=== PATIENT | male | born 1975 | race Caucasian/White ===

== ENCOUNTER 2017-09-22 21:56 | Emergency (ER) | payer OTHER ==
--- NOTE | 2017-09-22 22:21 | EDM.PDOC ---
ED HPI GENERAL MEDICAL PROBLEM - General Chief Complaint: Lower Extremity Injury/Pain Stated Complaint: PAIN LT KNEE Time Seen by Provider: 09/22/17 22:20 Source of Information: Reports: Patient - History of Present Illness INITIAL COMMENTS - FREE TEXT/NARRATIVE: HISTORY AND PHYSICAL: History of present illness: [ Patient presents via EMS, it fell while playing basketball, he describes what he believes was a possible volvulus deformity of the lower extremity at the level of the knee, however , there is no deformity at this time. he had 8 out of 10 knee pain hence EMS provided 100 g of fentanyl. He has no pain at this time No fever nausea vomiting chills sweats no head injury or loss of consciousness no chest pain shortness breath dizziness or palpitation no bowel or urine symptoms ] Review of systems: As per history of present illness and below otherwise all systems reviewed and negative. Past medical history: As per history of present illness and as reviewed below otherwise noncontributory. Surgical history: As per history of present illness and as reviewed below otherwise noncontributory. Social history: No reported history of drug or alcohol abuse. Family history: As per history of present illness and as reviewed below otherwise noncontributory. Physical exam: HEENT: Atraumatic, normocephalic, pupils reactive, negative for conjunctival pallor or scleral icterus, mucous membranes moist, throat clear, neck supple, nontender, trachea midline. Lungs: Clear to auscultation, breath sounds equal bilaterally, chest nontender. Heart: S1S2, regular, negative for clicks, rubs, or JVD. Abdomen: Soft, nondistended, nontender. Negative for masses or hepatosplenomegaly. Negative for costovertebral tenderness. Pelvis: Stable nontender. Genitourinary: Deferred. Rectal: Deferred. Extremities: Atraumatic, negative for cords or calf pain. Neurovascular unremarkable. Left lower extremity hip and ankle and unaffected, knee pain, minimal swelling no bruising no ballooning of the patella very limited exam due to pain, he is tender over the lateral joint line entire limb is neurovascularly intact Neuro: Awake, alert, oriented. Cranial nerves II through XII unremarkable. Cerebellum unremarkable. Motor and sensory unremarkable throughout. Exam nonfocal. Diagnostics: [Left knee 3 views ] Therapeutics: [Fentanyl 100 g provided via EMS ] Impression: [Left knee pain] Definitive disposition and diagnosis as appropriate pending reevaluation and review of above. Left Middle Knee Pain Score (Numeric/FACES): 8 - Related Data Allergies Allergy/AdvReac Type Severity Reaction Status Date / Time No Known Allergies Allergy Verified 01/05/15 17:32 Home Meds: Home Meds Sulfamethoxazole/Trimethoprim [Bactrim Ds Tablet] 1 each PO Q12HR #14 tablet [Rx] Social & Family History - Tobacco Use Smoking Status *Q: Current Every Day Smoker Years of Tobacco use: 23 - Alcohol Use Days Per Week of Alcohol Use: 1 Number of Drinks Per Day: 2 Total Drinks Per Week: 2 - Recreational Drug Use Recreational Drug Use: No Review of Systems - Review of Systems Review Of Systems: ROS reveals no pertinent complaints other than HPI. ED EXAM, GENERAL - Physical Exam Exam: See Below Course - Vital Signs Last Recorded V/S: Last Vital Signs Temp 98.3 F 09/22/17 22:56 Pulse 77 09/22/17 22:56 Resp 18 09/22/17 22:56 BP 112/70 09/22/17 22:56 Pulse Ox 98 09/22/17 22:56 - Orders/Labs/Meds Orders: Active Orders 24 hr Category Date Time Status Knee 3V Lt [CR] Stat Exams 09/22/17 22:20 Taken Departure - Departure Time of Disposition: 23:56 Disposition: Home, Self-Care 01 Condition: Good Clinical Impression: Left knee pain - Discharge Information Referrals: PCP,None [Primary Care Provider] - Forms: ED Department Discharge Additional Instructions: Immobilizer Crutches Nonweightbearing Medication as prescribed Return if symptoms persist or worsen Follow-up with orthopedist next week Call for appointment Phone number provided below for appropriate follow-up [facility] [address], [address] [place] [address] my orthopedic The following information is given to patients seen in the emergency department who are being discharged to home. This information is to outline your options for follow-up care. We provide all patients seen in our emergency department with a follow-up referral. The need for follow-up, as well as the timing and circumstances, are variable depending upon the specifics of your emergency department visit. If you don't have a primary care physician on staff, we will provide you with a referral. We always advise you to contact your personal physician following an emergency department visit to inform them of the circumstance of the visit and for follow-up with them and/or the need for any referrals to a consulting specialist. The emergency department will also refer you to a specialist when appropriate. This referral assures that you have the opportunity for follow-up care with a specialist. All of these measure are taken in an effort to provide you with optimal care, which includes your follow-up. Under all circumstances we always encourage you to contact your private physician who remains a resource for coordinating your care. When calling for follow-up care, please make the office aware that this follow-up is from your recent emergency room visit. If for any reason you are refused follow-up, please contact the [facility] emergency department at and asked to speak to the emergency department charge nurse. - My Orders Last 24 Hours: My Active Orders 09/22/17 22:20 Knee 3V Lt [CR] Stat - Assessment/Plan Last 24 Hours: My Active Orders 09/22/17 22:20 Knee 3V Lt [CR] Stat
[2017-09-23 02:18] VITALS: BP 126/70
--- NOTE | 2017-09-23 16:20 | CR ---
EXAM DATE: 09/22/17 PATIENT'S AGE: 42 Patient: MEREDITH RODRIGUEZ Facility: [place], [place] Site . Site : [id number] Study: XRay Knee Left [id number] 11:01:07 PM Ordering Physician: Jay Chavez Final Report: Indication: Sports injury. Comparison: None. Findings: Soft tissue structures are intact. Bony mineralization is normal. A fabella is noted. No acute fracture nor dislocation is identified. Narrowing is noted of the medial compartment. Impression: Modest degenerative changes left knee. No acute fracture/dislocation. Dictated by Debbi Oconnell MD @ Sep 22 2017 11:23PM (Electronic Signature) Report Signed by Proxy. EPIFANIO
== END 2017-09-23 00:10 | disposition home or self-care (01) ==
LOC: MW.ED 21:56
DX: M25.562 Pain in left knee (principal); F17.210 Nicotine dependence, cigarettes, uncomplicated; W19.XXXA Unspecified fall, initial encounter; Y93.67 Activity, basketball
CPT/HCPCS: 73562-26-LT; 73562-LT; 99283; 99284

== ENCOUNTER 2024-04-29 10:59 | Emergency (ER) | payer OTHER ==
[2024-04-29 11:23] VITALS: BP 141/91
[2024-04-29] MEDS: Acetaminophen/HYDROcodone 325-5 MG Tab PO ONE (11:48)
[2024-04-29 14:14] VITALS: PULSE 70
== END 2024-04-29 12:24 | disposition home or self-care (01) ==
LOC: MW.ED 10:59
DX: S49.91XA Unspecified injury of right shoulder and upper arm, initial encounter (principal); Z75.8 Other problems related to medical facilities and other health care; W01.0XXA Fall on same level from slipping, tripping and stumbling without subsequent striking against object, initial encounter
CPT/HCPCS: 73030; 99283; A9270